=== PATIENT | female | born 1970 | race Caucasian/White ===

== ENCOUNTER 2018-07-19 06:23 | Emergency (ER) | payer BC ==
[2018-07-19 06:23] VITALS: BMI 37.6
[2018-07-19 06:43] VITALS: TEMP 98.3
[2018-07-19] MEDS ORDERED: Labetalol 5 mg/ml Inj 20ML IV STA (07:19)
[2018-07-19] MEDS ORDERED: Labetalol 5mg/ml (4ml) ONE (07:33)
[2018-07-19 07:57] LABS: BASO # 0.1 K/uL (0.0-0.2); BASO % 1.2 % (0.0-2.0); EOS # 0.1 K/uL (0.0-0.7); EOS % 2.1 % (0.0-4.0); HEMOGLOBIN 12.4 g/dL (11.0-16.0); LYMPH # 1.6 K/uL (1.0-4.3); LYMPH % 22.8 % (20.0-40.0); MEAN CELL VOLUME 79.5 fL (81.0-99.0); MEAN CORPUSCULAR HEMOGLOBIN 26.7 pg (27.0-31.0); MEAN CORPUSCULAR HGB CONC 33.6 g/dL (33.0-37.0); MEAN PLATELET VOLUME 7.9 fL (7.2-11.7); MONO # 0.3 K/uL (0.0-0.8); MONO % 4.4 % (0.0-10.0); NEUT # 4.9 K/uL (1.8-7.0); NEUT % 69.5 % (50.0-75.0); RBC 4.65 Mil/uL (3.80-5.20); RED CELL DISTRIBUTION WIDTH 13.9 % (11.5-14.5)
[2018-07-19 08:02] LABS: ALB/GLOB RATIO 1.2 (1.0-2.1); ALBUMIN 4.3 g/dL (3.5-5.0); ALT/SGPT 28 U/L (9-52); AST/SGOT 27 U/L (14-36); BLOOD UREA NITROGEN 13 mg/dL (7-17); CALCIUM 9.8 mg/dl (8.6-10.4); GFR NON-AFRICAN AMERICAN > 60
[2018-07-19 08:21] LABS: SQUAMOUS EPITHIAL < 1 /hpf (0-5); URINE BILIRUBIN NEGATIVE (NEGATIVE); URINE BLOOD NEGATIVE (NEGATIVE); URINE CLARITY Clear (Clear); URINE COLOR Straw (YELLOW); URINE GLUCOSE (UA) NORMAL (Normal); URINE LEUKOCYTE ESTERASE NEG Leu/uL (Negative); URINE PROTEIN NEGATIVE (NEGATIVE); URINE UROBILINOGEN NORMAL mg/dL (0.2-1.0)
[2018-07-19 08:36] VITALS: O2SAT 98
--- NOTE | 2018-07-19 08:36 | C.PDOC ---
History Of Present Illness 48 y/o female, with PMHx of HTN (not compliant with meds), presents to ED for evaluation of intermittent episodes of dizziness since yesterday. Pt states she checked her blood pressure at home today and was found to be elevated. Pt states she took her Metoprolol prior to arrival, and reports feeling better at this time. Otherwise, denies chest pain, shortness of breath, nausea, vomiting, or visual changes. Time Seen by Provider: 07/19/18 07:07 Chief Complaint (Nursing): High Blood Pressure History Per: Patient History/Exam Limitations: no limitations Past Medical History Reviewed: Historical Data, Nursing Documentation, Vital Signs Vital Signs: Last Vital Signs Temp 98.3 F 07/19/18 06:31 Pulse 74 07/19/18 06:31 Resp 20 07/19/18 06:31 BP 180/118 H 07/19/18 06:31 Pulse Ox 98 07/19/18 06:31 - Medical History PMH: Asthma, HTN Family History: States: Unknown Family Hx - Social History Hx Tobacco Use: No Hx Alcohol Use: Yes Hx Substance Use: No - Immunization History Hx Tetanus Toxoid Vaccination: No Hx Influenza Vaccination: No Hx Pneumococcal Vaccination: No Review Of Systems Except As Marked, All Systems Reviewed And Found Negative. Constitutional: Negative for: Fever, Chills Eyes: Negative for: Vision Change Cardiovascular: Negative for: Chest Pain, Palpitations Respiratory: Negative for: Shortness of Breath Neurological: Positive for: Dizziness. Negative for: Weakness, Numbness, Headache Physical Exam - Physical Exam Appears: Non-toxic, No Acute Distress Skin: Normal Color, Warm, Dry Head: Atraumatic, Normacephalic Eye(s): bilateral: Normal Inspection Oral Mucosa: Moist Neck: Normal ROM, Supple Cardiovascular: Rhythm Regular Respiratory: Normal Breath Sounds, No Rales, No Rhonchi, No Wheezing Gastrointestinal/Abdominal: Soft, No Tenderness Extremity: Normal ROM, No Pedal Edema Neurological/Psych: Oriented x3, Normal Speech ED Course And Treatment - Laboratory Results Result Diagrams: 07/19/18 07:47 07/19/18 07:47 ECG: Interpreted By Me, Viewed By Me ECG Rhythm: Sinus Rhythm ECG Interpretation: No Acute Changes Interpretation Of ECG: Normal intervals, normal axis. No ST/T wave changes. Rate From EC (bpm) O2 Sat by Pulse Oximetry: 98 (RA) Pulse Ox Interpretation: Normal Medical Decision Making Medical Decision Making: Plan: Blood work Urinalysis EKG Repeat blood pressure had decreased. Pt is being discharged home with Rx and is instructed to follow up with PMD within 1-2 days. Disposition Counseled Patient/Family Regarding: Studies Performed, Diagnosis, Need For Followup, Rx Given - Disposition Referrals: [facility] [Outside] Disposition: HOME/ ROUTINE Disposition Time: 08:41 Condition: STABLE Additional Instructions: follow up with your doctor within 2 days call to make an appointment take blood pressure medications as prescribed return to ER if symptoms worsens or progress Prescriptions: Metoprolol Tartrate 50 mg PO DAILY #20 tablet Instructions: High Blood Pressure in Adults Forms: [facility] (I[place]ic), General Discharge Instructions - Clinical Impression Clinical Impression: Hypertension - Scribe Statement The provider has reviewed the documentation as recorded by the Scribe KP All medical record entries made by the Scribe were at my direction and personally dictated by me. I have reviewed the chart and agree that the record accurately reflects my personal performance of the history, physical exam, medical decision making, and the department course for this patient. I have also personally directed, reviewed, and agree with the discharge instructions and disposition.
[2018-07-19 08:45] VITALS: BP 159/99; PULSE 67; RESP 14
--- NOTE | 2018-07-19 20:40 | CARD ---
APPROVED REPORT Date of service: 07/19/2018 EKG Measurement Heart [id number] 170P28 [id number] <Conclusion> Normal sinus rhythm Normal ECG
== END 2018-07-19 08:59 | disposition home or self-care (01) ==
LOC: C.ER 06:23
DX: I10 Essential (primary) hypertension (principal)

== ENCOUNTER 2018-07-27 19:29 | Emergency (ER) | payer BC ==
[2018-07-27 19:29] VITALS: BMI 37.6
[2018-07-27 19:41] VITALS: TEMP 98.7
--- NOTE | 2018-07-27 20:43 | C.PDOC ---
History Of Present Illness 48 year old female patient with hx of HTN and asthma presents to the ER with c/o dizziness and slight headache. Patient reports she takes her blood pressure twice a day and is cautious when it is high due to a syncopal episode 2 years ago from a high blood pressure. Patient denies chest pain, abdominal pain, SOB, fever, nausea and diarrhea. Time Seen by Provider: 07/27/18 20:04 Chief Complaint (Nursing): High Blood Pressure History Per: Patient History/Exam Limitations: no limitations Onset/Duration Of Symptoms: Hrs Current Symptoms Are (Timing): Still Present Associated Symptoms: Dizziness, Headache Past Medical History Reviewed: Historical Data, Nursing Documentation, Vital Signs Vital Signs: Last Vital Signs Temp 98.7 F 07/27/18 19:38 Pulse 72 07/27/18 19:38 Resp 18 07/27/18 19:38 BP 194/115 H 07/27/18 20:35 Pulse Ox 99 07/27/18 19:38 - Medical History PMH: Asthma, HTN Family History: States: Unknown Family Hx - Social History Hx Tobacco Use: No Hx Alcohol Use: Yes Hx Substance Use: No - Immunization History Hx Tetanus Toxoid Vaccination: No Hx Influenza Vaccination: No Hx Pneumococcal Vaccination: No Review Of Systems Except As Marked, All Systems Reviewed And Found Negative. Constitutional: Negative for: Fever Cardiovascular: Negative for: Chest Pain Respiratory: Negative for: Shortness of Breath Gastrointestinal: Negative for: Nausea, Abdominal Pain, Diarrhea Neurological: Positive for: Headache, Dizziness Physical Exam - Physical Exam Appears: Non-toxic, No Acute Distress Skin: Normal Color, Warm, Dry Head: Normacephalic Eye(s): bilateral: Normal Inspection, EOMI Chest: Symmetrical, No Deformity Cardiovascular: Rhythm Regular Respiratory: Normal Breath Sounds Gastrointestinal/Abdominal: Soft, No Tenderness Extremity: Normal ROM (x4) Neurological/Psych: Oriented x3, Normal Speech Gait: Steady ED Course And Treatment ECG: Interpreted By Me, Viewed By Me ECG Rhythm: Sinus Rhythm ECG Interpretation: Normal, No Acute Changes Rate From EC O2 Sat by Pulse Oximetry: 99 (RA) Pulse Ox Interpretation: Normal Medical Decision Making Medical Decision Making: Impression: HTN with dizziness and headache Plans: -- lopressor Disposition Counseled Patient/Family Regarding: Diagnosis, Need For Followup - Disposition Disposition: HOME/ ROUTINE Disposition Time: 21:46 Condition: STABLE Additional Instructions: Follow up with your doctor. Take your Metoprolol twice a day until you see your doctor. Instructions: High Blood Pressure in Adults Forms: [facility] (Northern Irish), General Discharge Instructions - POA Present On Arrival: None - Clinical Impression Clinical Impression: Hypertension - Scribe Statement The provider has reviewed the documentation as recorded by the Scribe Gianna Jones Provider Attestation: All medical record entries made by the Scribe were at my direction and personally dictated by me. I have reviewed the chart and agree that the record accurately reflects my personal performance of the history, physical exam, medical decision making, and the department course for this patient. I have also personally directed, reviewed, and agree with the discharge instructions and disposition.
[2018-07-27 21:37] VITALS: BP 162/97; PULSE 70; RESP 16
[2018-07-27 21:48] VITALS: O2SAT 99
--- NOTE | 2018-07-29 21:06 | CARD ---
APPROVED REPORT Date of service: 07/27/2018 EKG Measurement Heart [id number] 170P34 [id number] <Conclusion> Normal sinus rhythm Nonspecific T wave abnormality Abnormal ECG
== END 2018-07-27 22:08 | disposition home or self-care (01) ==
LOC: C.ER 19:29
DX: I10 Essential (primary) hypertension (principal)